=== PATIENT | female | born 1960 | race Caucasian/White ===

== ENCOUNTER → 2018-12-09 16:21 | Outpatient (REF) | payer OTHER, SELFPAY ==
[2018-12-09 17:05] LABS: Alanine Aminotransferase 52 IU/L (9-52); Albumin 4.3 g/dL (3.5-5.0); Albumin Globulin Ratio 1.3 (1.0-2.8); Alkaline Phosphatase 73 U/L (38-126); Aspartate Aminotransferase 44 IU/L (14-36); Bilirubin Total 0.9 mg/dL (0.2-1.3); Blood Urea Nitrogen 14 mg/dL (7-17); Calcium 9.1 mg/dL (8.4-10.2); Carbon Dioxide 25 mmol/L (22-32); Chloride 103 mmol/L (98-107); Estimated Glomerular Filt Rate > 60.0 mL/min (>60); Globulin 3.2 g/dL (1.7-4.1); Glucose 128 mg/dL (70-100); HEMOLYSIS 17 (0-50); Potassium 4.2 mmol/L (3.4-5.1); Sodium 139 mmol/L (137-145); Total Protein 7.5 g/dL (6.3-8.2)
[2018-12-09 17:09] LABS: Add Manual Diff / Slide Review NO; Basophils Absolute Auto 0 /uL (0-100); Basophils Percent Auto 0.7 % (0-2); Eosinophils Absolute Auto 400 /uL (0-450); Eosinophils Percent Auto 6.5 % (2-4); Hematocrit 43.4 % (36-46); Hemoglobin A1C% w Est Avg Glu 6.8 % (4.0-6.0); Lymphocytes Absolute Auto 1500 /uL (1100-4500); Lymphocytes Percent Auto 23.8 % (25-40); Mean Corpuscular HGB Conc 32.2 % (30-36); Mean Corpuscular Hemoglobin 27.1 PG (26-34); Mean Corpuscular Volume 84.2 fL (80-100); Monocytes Absolute Auto 600 /uL (0-900); Monocytes Percent Auto 9.8 % (3-14); Neutrophils Absolute Auto 3800 /uL (1500-7000); Neutrophils Percent Auto 59.2 % (50-75); Platelet Count 203 X10^3/uL (150-400); Red Blood Cell Count 5.16 X10^6/uL (4.0-5.2); Red Cell Distribution Width 13.9 % (11.6-14.8); White Blood Cell Count 6.5 X10^3/uL (4.5-11.0)
[2018-12-09 17:26] LABS: Free T3, Triiodothyronine Free 3.02 pg/mL (2.77-5.27); Free T4, Direct Thyroxine 1.05 ng/dL (0.78-2.19); Triiodothryronine T3 Uptake 27.7 % (23.5-40.5)
[2018-12-09 17:40] LABS: Thyroid Stimulating Hormone 1.79 uIU/mL (0.47-4.68)
[2018-12-12 14:53] LABS: Anti Thyroglobulin Antibody < 1 IU/mL (< 2); Thyroid Peroxidase Antibodies 2 IU/mL (< 9)
[2018-12-12 16:30] LABS: Triiodothyronine T3 Total 104 ng/dL (76-181)
== END ==
LOC: LAB 16:21
PROVIDERS: Visit Provider Naturopath
DX: E03.9 Hypothyroidism, unspecified (principal); E11.9 Type 2 diabetes mellitus without complications
CPT/HCPCS: 36415; 80053; 83036; 84439; 84443; 84479; 84480; 84481; 85025; 86376; 86800

== ENCOUNTER → 2020-03-16 09:33 | Outpatient (CLI) | payer OTHER, SELFPAY ==
[2020-03-17 02:43] LABS: COVID19 Sendout Not Detected (Not Detect)
== END ==
PROVIDERS: Visit Provider Physician Assistant
DX: Z01.812 Encounter for preprocedural laboratory examination (principal)
CPT/HCPCS: 87635

== ENCOUNTER 2020-03-18 06:35 | Day surgery (SDC) | payer OTHER, SELFPAY ==
[2020-03-17 08:42] VITALS: BMI 39.9
[2020-03-18] VITALS (15 sets, daily range): BP systolic 101–146; BP diastolic 51–84; PULSE 47–69; RESP 12–20; TEMP 35.6–36.6; O2SAT 93–100; BMI 39.3
--- NOTE | 2020-03-18 | DI.RAD.S_ITS ---
PROCEDURE: XR LUMBAR SPINE 1V INDICATIONS: LAMINECTOMY TECHNIQUE: Single views of the lumbar spine were acquired. COMPARISON: None. FINDINGS: Spot fluoroscopic intraoperative image demonstrates surgical probe with the tip projecting at the L4-L5 level. Dictated by: Abhi Chattejree M.D. on 03/18/2020 at 14:00 Approved by: Abhi Chatterjee M.D. on 03/18/2020 at 14:03
[2020-03-18] MEDS: LACTATED RINGERS 1,000 ML 42 ML IV (06:57)
[2020-03-18] MEDS: SCOPOLAMINE 1 PATCH TOP (07:01)
[2020-03-18] MEDS: ACETAMINOPHEN 325 MG TABLET 975 MG PO (07:01)
[2020-03-18] MEDS: GABAPENTIN 300 MG CAPSULE PO (07:01)
--- NOTE | 2020-03-18 07:24 | PM.PREOP ---
Pre-operative Note COVID-19 COVID-19 status: Negative Result date/Date tested (Pos, Neg/Pending): 03/16/20 Interval Note History & Physical reviewed/Exam performed by Physician: Yes Changes to H&P: No
--- NOTE | 2020-03-18 07:26 | PM.OP.1 ---
Operative Date/Time/Diagnoses Date of procedure: 03/18/20 Time of procedure: 09:40 Pre-op diagnosis: Lumbar stenosis with radiculopathy Post-op diagnosis: same Procedure & Clinicians Procedure: L3-4, L4-5 laminectomies Use of microscope Placement of epidural catheter Same procedure as scheduled: Yes Indications: [age] year old female with intractable pain from stenosis. They had failed conservative management and requested operative intervention. Risks and benefits of surgery were discussed and appropriate consents were obtained. Surgeon: Rajiv Talley Paper Cup Machine Tender: Supa Valencia Anesthesia Type: General Operative Notes Findings: None Closure Type: primary Specimen(s): none sent Estimated Blood Loss (mL): 20 Blood products transfused: none Procedure in detail: Patient was brought to the operating room and intubated on the table. A time-out was performed. She was rolled over the well-padded prone position on the Mazin table. The back was prepped and draped in standard sterile fashion. Preoperative antibiotics were given. Using fluoroscopy, a 3 cm incision was made to the left of the midline at the L4-5 level. We used Bovie to come down to and split the fascia. We then used the [employer] MaXcess dilators with fluoroscopy and then opened our retractors. The soft tissue was cleared off with Bovie, a marker was placed, an x-ray was taken to confirm positioning. We then brought in the microscope. A combination of high-speed bur and Kerrison were used to perform a laminectomy from the left-sided L4-5. We carefully depressed the dura and reach across the opposite side to remove the facet hypertrophy on the right. We cleared out the neural foramen. In the in the ball probe could be run cephalad, caudally and out to the foramen and everything was open. We then moved the retractor up to the L3-4 level. Again we cleared off the soft tissue. We used a bur and Kerrison to perform a laminectomy from the left-sided L3-4. Carefully depressed the dura and reached across to the opposite side to remove the facet hypertrophy on the right as well. We cleared out the foramen. In the end the ball of could be run cephalad, caudally, and out the foramen everything was open. An epidural catheter was filled with 100 mcg of fentanyl and 8 mL of 0.25% Marcaine. The dura was carefully depressed under the laminotomy site and the catheter was advanced 6 cm cephalad. The retractor was removed and the fascia was closed. The epidural catheter was then injected without resistance and removed. Vancomycin powder was placed in the wound. Superficial and skin were closed. Sterile dressing was placed. The patient was then rolled over, transferred to the stretcher, and brought to recovery room without complications. Complications: none Post-operative Condition: stable Disposition: PACU Plan for aftercare: Outpatient with bed. Probable overnight stay and discharge tomorrow.
[2020-03-18] MEDS: CEFAZOLIN 2 GM/100 ML FROZ.PIGGY IV ×2 (07:35→14:18)
--- NOTE | 2020-03-18 08:14 | SUR.OPER ---
Prone on spine table, head in foam head support, padded chest and pelvic supports, gel pad at knees, lower legs supported by pillows; nipples, genitalia and toes free of pressure, arms secured on foam padded arm boards at <90 degrees abduction. Tape over blanket at thigh secured to table.
[2020-03-18] MEDS: SODIUM CHLORIDE 0.9% 1,000 ML, GENTAMICIN 80 MG IRR (08:21)
[2020-03-18] MEDS: THROMBIN (RECOMBINANT) 5,000 UNIT VIAL 5000 UNIT TOP (08:21)
[2020-03-18] MEDS: VANCOMYCIN 1,000 MG VIAL 1000 MG TOP (08:21)
[2020-03-18] MEDS: BUPIVACAINE 0.25% (PF) 8 ML, fentaNYL 100 MCG INJ (08:22)
[2020-03-18] MEDS: LACTATED RINGERS 1,000 ML 125 ML IV (11:13)
[2020-03-18] MEDS: INSULIN ASPART 100 UNIT/ML INSULN PEN SUBCUT (12:20)
--- NOTE | 2020-03-18 13:33 | PC.NURSE ---
Addendum entered by Naya Quiñones R.N. 03/18/20 15:18: Went over dc meds and instructions with patient, questions answered. Rx for new meds given, patient already has follow up scheduled. Patient taken via wc to vehicle driven by brother, patient had all belongings. Addendum entered by Naya Quiñones R.N. 03/18/20 15:17: Patient wanting to discharge, call placed to Dr Talley, patient okayed for discharge per MD. Original Note: Patient alert,oriented denies pain, ambulated in schmidt with therapy and did stairs. Voided unmeasured amount, tolerated lunch. Patient may discharge later this evening per Dr Talley.
--- NOTE | 2020-03-18 13:45 | PT.IIE ---
Current Diagnoses Morbid (severe) obesity due to excess calories (03/18/20) Spondylolisthesis, lumbar region (03/18/20) Spinal stenosis, lumbar region with neurogenic claudication (03/18/20) Strain of muscle, fascia and tendon of lower back, subsequent encounter (03/18/20) Surgery Performed Operation Date: 03/18/20 07:45 Actual Procedures p L34 & L45 Laminectomies - Rajiv Talley MD Surgical History (Last Updated 03/17/20 @ 08:48 by Jessenia Horner, RN) History of hysterectomy (Acute) S/P epidural steroid injection (Acute) Medical History (Last Updated 03/17/20 @ 08:48 by Jessenia Horner, DAJUAN) Diabetes mellitus, type II (Acute) Hypothyroid (Acute) Lumbar stenosis (Acute) Physical Therapy Inpatient Evaluation/Re-Eval M1 PT/OT-IP Prior Functional Status Start: 03/18/20 12:48 Freq: NEEDED Status: Active Protocol: Document 03/18/20 13:35 AW (Rec: 03/18/20 14:28 AW [email or web address]) Medical Review Prior Functional Status Medical History Reviewed Yes Diet/Fluid Consistency Regular Communication WNL Mobility and Gait Pt is an independent community ambulator at baseline. She had limited standing tolerance (<10 minutes) and was moving slowly prior to surgery. Activities of Daily Living and IADL's Independent although slow with dressing. Social History Household Members none Living Arrangements House Number of Floors (Floors) One Floor Number of Stairs To Enter/Railing? 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 Although she does not have a cane or walker , she does have bilateral trekking poles at home. Her brother is staying with her for several days to provide assist and she has another friends who will be able to help. Pt plans to return to work in some capacity in ~1 month. M2 PT-IP Current Condition Start: 03/18/20 12:48 Freq: NEEDED Status: Active Protocol: Document 03/18/20 13:35 AW (Rec: 03/18/20 14:28 AW [email or web address]) Physical Therapy Current Condition Current Condition Evaluation Date 03/18/20 Treatment Diagnosis s/p L3-4 L4-5 laminectomy, difficulty in walking Onset Date 03/18/20 Precautions Lumbar Precautions Log Roll,No Twisting,Limit Bending,Lifting Restriction of 10 lbs,Gait Belt above Incisional Area M3 PT-IP Subjective Start: 03/18/20 12:48 Freq: NEEDED Status: Active Protocol: Document 03/18/20 13:35 AW (Rec: 03/18/20 14:28 AW [email or web address]) Subjective Physical Therapy Visit Type Type Initial Evaluation Visit Start Time 13:01 Visit Stop Time 13:34 Total Visit Minutes [address] Talley arrived to speak with the pt and discussed potential to discharge today. Physical Therapy Visit Comments Patient Comments Pt is feeling somewhat groggy but is willing to participate with PT. Patient Goals Pt hopes to go home today or tomorrow and return to work even if light duty in ~1 month . Therapy Pain Assessment Pain When Pain Assessed During Mobility Pain Present Pain Present Pain Reported Location low back Intensity 1 Scale Used Numeric (0 - 10) Description With Movement Pain Management Techniques Re-positioning,Timing of Activity with Medications M4 PT-IP Mobility and Gait Start: 03/18/20 12:48 Freq: NEEDED Status: Active Protocol: Document 03/18/20 13:35 AW (Rec: 03/18/20 14:28 AW [email or web address]) PT-Bed Mobility Assessment Rolling Type of Rolling Log Rolling,Roll to Left Level of Assist Standby Assistance Supine to Sit Supine to Sit Standby Assistance Scooting Scooting to Edge of Bed Standby Assistance Scooting Up and Down in Bed Standby Assistance PT-Transfer Assessment Sit to and From Stand Sit to and from Stand Standby Assistance Equipment Transfer Assistive Device Gait Belt Orthotic/Prosthetic Devices or Brace: No Transfers Transfer Destination Chair,Toilet Transfer Technique pt ambulated without AD Transfer Ability Level of Assist Standby Assistance Comments Mobility Comments Pt completed all bed mobility SBA, performing a log roll to her left side. She was able to stand without complaint of dizziness or nausea. No initial unsteadiness was apparent. She ambulated in the halls without AD 220 feet SBA and completed stair training. Upon return to the room, she transferred to and from the toilet using the right-sided grab bar SBA. She then ambulated SBA to the sink where she stood to wash her hands without need to use the countertop for support. She then transferred to the chair SBA and was positioned there with call light and all needs within reach. Gait Assessment Gait Gait Assistance Required: Standby Assistance Distance (Feet) 220 Able to Maintain Weight Bearing Status Yes During Gait Assistive Devices Assistive Device Gait Belt Orthotic/Prosthetic Devices or Brace: No Gait Deviations General Gait Pattern Antalgic,Decreased Stride Length,Decreased Feet Clearance,Wide Based Gait Factors Limiting Gait Function Factors Limiting Gait Function Decreased Activity Tolerance, Decreased Strength,Pain,Poor Balance Comments Gait Comments See mobility comments. During ambulation, pt was able to maintain precautions, turning on block instead of twisting to look over her shoulder when needed. Stair Climbing Assessment Evaluation Level of Assist On Stairs Standby Assistance Devices Stair Climbing Assistive Devices Left Railing,Right Railing Technique/Endurance Stair Climbing Direction Ascend and Descend Stair Climbing Technique Step Over Step,Step to Step Number of Steps Climbed 3 Query Text: Stair Climbing Set # Repetitions (reps) 2 Comments Stair Climbing Comments Pt used unilateral rail, ascending step over step and descending step-to. Pt was safe with SBA. PT-Balance Assessment Sitting Balance and Reactions Static Sitting Balance Ability Good Dynamic Sitting Balance Ability Good Standing Balance and Reactions Static Standing Balance Ability Good Dynamic Standing Balance Ability Good Device Used no AD M5 PT-IP Objective Assessments Start: 03/18/20 12:48 Freq: NEEDED Status: Active Protocol: Document 03/18/20 13:35 AW (Rec: 03/18/20 14:28 AW [email or web address]) Orientation Orientation/Cognition Level of Alertness Lethargic Orientation Name,Day of Week,Place, Situation Language Function Ability No Deficits Noted Safety Awareness Understands Safety Issues Memory Description No Deficits Noted Gross Range of Motion Upper Extremity ROM Assessment Within Functional Limits Lower Extremity ROM Assessment Within Functional Limits Strength Upper Extremity Strength Assessment Within Functional Limits Lower Extremity Strength Assessment Within Functional Limits Comments Strength Comments BLE grossly 4+/5 Coordination Assessment Gross Coordination Gross Coordination WNL Sensation Assessment Sensation Gross Sensation WNL Comments Sensation Comments No complaint of numbness or tingling in either LE. Muscle Tone Muscle Tone WNL Yes M6 PT-IP Treatment Start: 03/18/20 12:48 Freq: NEEDED Status: Active Protocol: Document 03/18/20 13:35 AW (Rec: 03/18/20 14:28 AW [email or web address]) Physical Therapy Treatment Education Education Provided Precautions,Weight Bearing Status,Post-Op Packet,Safety Other Treatments Other Treatment Performed Provided education on role of PT, plan of care, and post-op precautions. Pt was able to maintain all precautions during mobility. M7 PT-IP Assessment and Plan Start: 03/18/20 12:48 Freq: NEEDED Status: Active Protocol: Document 03/18/20 13:35 AW (Rec: 03/18/20 14:28 AW [email or web address]) PT Summary Assessment and Plan Potential Rehabilitation Potential Excellent Status of Condition at Evaluation Evolving Summary Impairments Pain,ROM,Strength,Balance,Bed Mobility,Transfers,Gait, Activity Tolerance Assessment Summary Sintia is a 60 yo woman seen for PT evaluation on POD0 following L3-4 L4-5 laminectomy. She is independent in all regards at baseline. Mobility assessment today reveals no need for more than SBA with all mobility including stairs. She will be safe to discharge home with assist when medically appropriate. Goals Bed Mobility Goal Independent Transfer Goal Independent Gait Goal Independent Gait Distance 300 Other Goals - up/down 6 stairs with unilateral rail independent Days to Meet Goals 2 Frequency of Treatment Frequency Of Treatment Twice a Day Treatment Plan Physical Therapy Treatment Plan Bed Mobility Training,Transfer Training,Gait Training, Therapeutic Exercise,Balance Retraining,Post Op Education, Discharge Planning,Hot or Cold Pack Other Recommendations and Next Treatment progress independence with all Focus mobility; review precautions Recommendations To Nursing Amount of Assist Needed Standby Assistance Discharge Recommendations PT Discharge Recommendations Home with Assistance Transportation Needs at Discharge Private Vehicle
--- NOTE | 2020-03-18 14:41 | OT.IP.EVAL ---
Current Diagnoses Morbid (severe) obesity due to excess calories (03/18/20) Spondylolisthesis, lumbar region (03/18/20) Spinal stenosis, lumbar region with neurogenic claudication (03/18/20) Strain of muscle, fascia and tendon of lower back, subsequent encounter (03/18/20) Surgery Performed Operation Date: 03/18/20 07:45 Actual Procedures p L34 & L45 Laminectomies - Rajiv Talley MD Past Medical History (Last Updated 03/17/20 @ 08:48 by Jessenia Horner, RN) Diabetes mellitus, type II (Acute) Hypothyroid (Acute) Lumbar stenosis (Acute) Surgical History (Last Updated 03/17/20 @ 08:48 by Jessenia Horner RN) History of hysterectomy (Acute) S/P epidural steroid injection (Acute) Occupational Therapy Inpatient Evaluation/Re-Eval M1 PT/OT-IP Prior Functional Status Start: 03/18/20 14:45 Freq: NEEDED Status: Active Protocol: Document 03/18/20 14:47 [facility] (Rec: 03/18/20 14:58 [facility] [id number]) Medical Review Prior Functional Status Medical History Reviewed Yes Diet/Fluid Consistency Regular Communication WNL Mobility and Gait Pt is an independent community ambulator at baseline. She had limited standing tolerance (<10 minutes) and was moving slowly prior to surgery. Activities of Daily Living and IADL's Independent although slow with dressing. Social History Household Members none Living Arrangements House Number of Floors (Floors) One Floor Number of Stairs To Enter/Railing? 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 Although she does not have a cane or walker , she does have bilateral trekking poles at home. Her brother is staying with her for several days to provide assist and she has another friends who will be able to help. Pt plans to return to work in some capacity in ~1 month. M2 OT-IP Current Condition Start: 03/18/20 14:45 Freq: Status: Active Protocol: Document 03/18/20 14:47 [facility] (Rec: 03/18/20 14:58 [facility] [id number]) Occupational Therapy Current Condition Current Condition Evaluation Date 03/18/20 Treatment Diagnosis Lumbar stenosis, S/P L3-4, L4- 5 laminectomy Diagnosis Onset Date 03/18/20 Post Operative Precautions Lumbar Precautions Log Roll,No Twisting,Limit Bending,Lifting Restriction of 10 lbs,Gait Belt above Incisional Area Weight Bearing Status Weight Bearing Status Weight Bear as Tolerated M3 OT- IP Subjective and Pain Start: 03/18/20 14:45 Freq: Status: Active Protocol: Document 03/18/20 14:47 [facility] (Rec: 03/18/20 14:58 [facility] [id number]) OT- Subjective Occupational Therapy Visit Type Type Initial Evaluation Visit Start Time 14:13 Visit Stop Time 14:41 Total Visit Minutes 28 Occupational Therapy Visit Comments Patient Comments Pt agreeable to get up with OT . Patient/Caregiver Goals TO go home. OT Pain Assessment Pain When Pain Assessed At Rest Pain Present Pain Present Denied Pain M4 OT- IP ADL's Start: 03/18/20 14:45 Freq: Status: Active Protocol: Document 03/18/20 14:47 [facility] (Rec: 03/18/20 14:58 [facility] [id number]) OT ADL-Grooming Comments OT Grooming Comments Pt states did already completed, educated pt to bend at hips to spit or spit into a cup to follow back precautions. OT ADL-Dressing General Eval Lower Body Dressing Ability Independent Comments OT Dressing Comments Pt able to comfortably cross her legs for LB dressing needs. Pt states good understanding to sit for LB dressing needs. . OT ADL-Toileting General Evaluation Toileting Ability Moderate Assistance Comments OT Toileting Comments At this time, pt only able to do pericare needs after urination and educated best to get toilet paper aid to assist with her independence for doing it on her own. OT ADL-Bathing Comments OT Bathing Comments Educated may be safer to sit to shower and use of long towel to increase ease for hygiene needs. M5 OT- IP IADL's Start: 03/18/20 14:45 Freq: Status: Active Protocol: Document 03/18/20 14:47 [facility] (Rec: 03/18/20 14:58 [facility] [id number]) OT-Instrumental Activities of Daily Living Home Safety Awareness Awareness of Need for Assistance at Home Good Awareness Ability to Problem Solve Emergency Able to Problem Solve Situations M6 OT- IP Functional Cognition Start: 06/16/20 14:45 Freq: Status: Active Protocol: Document 03/18/20 14:47 [facility] (Rec: 03/18/20 14:58 [facility] [id number]) Cognitive Factors Limiting Selfcare Function Cognitive Ability Level of Alertness Alert Patient Orientation Name,Age,Birthday,Month,Date, Year,Day of Week,Place, Situation Attention Span Ability Capable of Focused Attention, Capable of Sustained Attention Ability to Follow Commands Able to Follow Multi-Step Commands Memory Description No Deficits Noted Safety Awareness No Deficits Noted Cognitive Comments Cognitive Assessment Comments Pt appears intact for cognitive needs and showing good safety to incorporate back precautions for all mobility and ADl needs. OT- Vision and Hearing OT- Hearing Assessment OT- Hearing Assessment WFL OT- Vision Assessment Visual Acuity WFL M7 OT- IP Mobility and Balance Start: 03/18/20 14:45 Freq: Status: Active Protocol: Document 03/18/20 14:47 [facility] (Rec: 03/18/20 14:58 [facility] [id number]) OT-Transfer Assessment Sit to and From Stand Sit to and from Stand Independent Transfers Transfer Ability Standby Assistance Technique Transfer Destination Chair,Toilet Comments Mobility Comments Mainly SBA due to having to manage IV pole. OT- Gait Assessment Gait Gait Assistance Required: Independent OT- Balance Assessment Sitting Balance and Reactions Static Sitting Balance Ability Normal Dynamic Sitting Balance Ability Normal Standing Balance and Reactions Static Standing Balance Ability Normal Dynamic Standing Balance Ability Good M8 OT- IP Objective Assessments Start: 03/18/20 14:45 Freq: Status: Active Protocol: Document 03/18/20 14:47 [facility] (Rec: 03/18/20 14:58 [facility] [id number]) OT Gross Range of Motion Upper Extremity Range of Motion Assessment Within Functional Limits M9 OT- IP Assessment and Plan Start: 03/18/20 14:45 Freq: Status: Active Protocol: Document 03/18/20 14:47 [facility] (Rec: 03/18/20 14:58 [facility] [id number]) OT Summary Assessment and Plan Potential Rehabilitation Potential Excellent Analytic Complexity at Evaluation Low Summary OT Impairments Toileting,Bathing Progress Towards Goals Progressing Toward Goals Assessment Summary Pt low complexity and main barrier is not able to reach for hygiene needs and now looking to get a toilet paper aid. Pt to have brother stay with her for a few days initially and friends to assist as well. Pt looking to go home today. Goals Dressing Goal Independent Toileting Goal Independent,Toilet Paper Aid Bathing Goal Independent Days to Meet Goals 1 Frequency of Treatment Frequency Of Treatment Once a Day Treatment Plan OT Treatment Plan ADL Training Other Treatment Recommendations and Next shower if still here Treatment Focus Discharge Recommendations OT Discharge Recommendations Home with Assistance Home Equipment Needs shower chair?, Toilet aid Transportation Needs at Discharge Private Vehicle
== END 2020-03-18 15:19 | disposition home or self-care (01) ==
LOC: OR 06:41 → AC 09:00
PROVIDERS: PCP Orthopaedic Surgery; Referring Provider Orthopaedic Surgery; Visit Provider Orthopaedic Surgery
PROC: (CPT 63047; principal; 2020-03-18 07:45)
DX: M48.062 Spinal stenosis, lumbar region with neurogenic claudication (principal); M43.16 Spondylolisthesis, lumbar region; S39.012D Strain of muscle, fascia and tendon of lower back, subsequent encounter; E66.01 Morbid (severe) obesity due to excess calories; E11.9 Type 2 diabetes mellitus without complications; G47.33 Obstructive sleep apnea (adult) (pediatric); Z79.84 Long term (current) use of oral hypoglycemic drugs; Z68.39 Body mass index [BMI] 39.0-39.9, adult
CPT/HCPCS: 63047; 63048; 72020; 76000; 82962; 97161; 97165; 97530; 97535; J0330; J0690; J2250; J2405; J2704; J3010